=== PATIENT | female | born 1985 | race Hispanic/Latino ===

== ENCOUNTER 2022-05-21 01:43 | Emergency (ER) | payer SELFPAY ==
[2022-05-21 02:41] LABS: Urine Blood 2+ (Negative); Urine Glucose Negative (Negative); Urine Protein Negative (Negative)
[2022-05-21 05:03] LABS: Absolute Lymphocytes (CBC) 1.5 K/uL (0.7-4.9); Hematocrit 40.6 % (36.0-45.0); Lymphocytes % 21.4 % (15.3-44.8); MPV 7.9 fL (7.6-11.3); RBC Red Blood Cell Count 4.29 M/uL (3.86-4.86)
[2022-05-21 05:22] LABS: Potassium 3.6 mmol/L (3.5-5.1)
--- NOTE | 2022-05-21 08:07 | EDPHYS ---
Physician Documentation [facility] Name: Kira Nichole Age: 37 yrs Sex: Female : 1985 Arrival Date: 05/21/2022 Time: 01:46 Bed 3 Private MD: ED Physician Jamaal Jenkins HPI: 05/21 04:10 This 37 yrs old Female presents to ER via Ambulatory with complaints of mh7 Vaginal Bleeding. 04:10 The patient presents with vaginal bleeding that is light. Onset: The symptoms/episode mh7 began/occurred today, at 01:00. Modifying factors: The symptoms are alleviated by nothing, the symptoms are aggravated by nothing. 04:10 Associated signs and symptoms: Pertinent positives: back pain, Pertinent negatives: mh7 constipation, cramping, diarrhea, dyspareunia, dysuria, fever, hematuria, nausea, urinary frequency, vaginal discharge, vomiting. 04:10 Severity of symptoms: At their worst the symptoms were mild, earlier today, in the 7 emergency department the symptoms have improved, markedly. The patient is sexually active. 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 - Social history:: Smoking status: Patient denies any tobacco usage or history of. ROS: 04:10 Constitutional: Negative for fever, chills, and weight loss, Eyes: Negative for injury, mh7 pain, redness, and discharge, ENT: Negative for injury, pain, and discharge, Neck: Negative for injury, pain, and swelling, Cardiovascular: Negative for chest pain, palpitations, and edema, Respiratory: Negative for shortness of breath, cough, wheezing, and pleuritic chest pain, Abdomen/GI: Negative for abdominal pain, nausea, vomiting, diarrhea, and constipation, MS/Extremity: Negative for injury and deformity, Skin: Negative for injury, rash, and discoloration, Neuro: Negative for headache, weakness, numbness, tingling, and seizure, Psych: Negative for depression, anxiety, suicide ideation, homicidal ideation, and hallucinations, Allergy/Immunology: Negative for hives, rash, and allergies, Endocrine: Negative for neck swelling, polydipsia, polyuria, polyphagia, and marked weight changes, Hematologic/Lymphatic: Negative for swollen nodes, abnormal bleeding, and unusual bruising. Exam: 04:10 Constitutional: This is a well developed, well nourished patient who is awake, alert, mh7 and in no acute distress. Head/Face: Normocephalic, atraumatic. Eyes: Pupils equal round and reactive to light, extra-ocular motions intact. Lids and lashes normal. Conjunctiva and sclera are non-icteric and not injected. Cornea within normal limits. Periorbital areas with no swelling, redness, or edema. Neck: Trachea midline, no thyromegaly or masses palpated, and no cervical lymphadenopathy. Supple, full range of motion without nuchal rigidity, or vertebral point tenderness. No Meningismus. Chest/axilla: Normal chest wall appearance and motion. Nontender with no deformity. No lesions are appreciated. Cardiovascular: Regular rate and rhythm with a normal S1 and S2. No gallops, murmurs, or rubs. Normal PMI, no JVD. No pulse deficits. Respiratory: Lungs have equal breath sounds bilaterally, clear to auscultation and percussion. No rales, rhonchi or wheezes noted. No increased work of breathing, no retractions or nasal flaring. Abdomen/GI: Soft, non-tender, with normal bowel sounds. No distension or tympany. No guarding or rebound. No evidence of tenderness throughout. Back: No spinal tenderness. No costovertebral tenderness. Full range of motion. Skin: Warm, dry with normal turgor. Normal color with no rashes, no lesions, and no evidence of cellulitis. MS/ Extremity: Pulses equal, no cyanosis. Neurovascular intact. Full, normal range of motion. Neuro: Awake and alert, GCS 15, oriented to person, place, time, and situation. Cranial nerves II-XII grossly intact. Motor strength 5/5 in all extremities. Sensory grossly intact. Cerebellar exam normal. Normal gait. Psych: Awake, alert, with orientation to person, place and time. Behavior, mood, and affect are within normal limits. 04:10 : CVA tenderness, is absent, Pelvic Exam: The exam is refused by the patient/guardian. The risks and consequences are understood by the patient. Vital Signs: 02:26 BP 137 / 87; Pulse 95; Resp 17; Temp 98.4; Pulse Ox 98% ; Weight 56.25 kg; Height 4 ft. vc1 11 in. (149.86 cm); Pain 6/10; 04:49 BP 133 / 94; Pulse 97; Resp 18 S; Pulse Ox 99% on R/A; as6 05:58 BP 113 / 78; Pulse 96; Resp 18 S; Pulse Ox 100% on R/A; as6 02:26 Body Mass Index 25.04 (56.25 kg, 149.86 cm) vc1 MDM: 07:10 Differential diagnosis: ectopic , menometrorrhagia, menorrhea, threatened Ab, mh7 inevitable Ab, complete Ab, retained Ab, septic Ab, missed Ab, urinary tract infection. Data reviewed: vital signs, nurses notes, lab test result(s), Beta HCG: CBC, electrolytes, urinalysis, UPT: positive radiologic studies, ultrasound. Data interpreted: Pulse oximetry: on room air is 100 %. Interpretation: normal. Counseling: I had a detailed discussion with the patient and/or guardian regarding: the historical points, exam findings, and any diagnostic results supporting the discharge/admit diagnosis, lab results, radiology results, the need for outpatient follow up, an OB/Gyne specialist. 07:35 Counseling: I had a detailed discussion with the patient and/or guardian regarding: to mh7 return to the emergency department if symptoms worsen or persist or if there are any questions or concerns that arise at home. Response to treatment: the patient's symptoms have markedly improved after treatment. ED course: Feels better, well appearing, NAD, VSS, no focal neurological deficits. Discussed test results and findings with patient. Discussed possible options including D\T\C procedure and expectant management with passing products of conception. She prefers to go home with expectant passage of products. 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 07:50 Physician consultation: Nash Fam MD was contacted at 07:30, regarding patient's mh7 condition, and will see patient in office. 08:06 Patient medically screened. 7 05/21 02:41 Order name: Urine Dipstick-Ancillary; Complete Time: 04:11 EDWI 05/21 02:41 Order name: Urine --Ancillary (enter results); Complete Time: 04:11 mw2 05/21 04:09 Order name: Abo/rh Typing; Complete Time: 06:24 as05/21 04:09 Order name: Basic Metabolic Panel; Complete Time: 05:44 05/21 04:09 Order name: CBC with Diff; Complete Time: 05:44 05/21 04:09 Order name: Quantitative Hcg; Complete Time: 05:44 05/21 02:41 Order name: Urine Dipstick-Ancillary (obtain specimen); Complete Time: 02:41 mw05/21 02:41 Order name: Urine Test (obtain specimen); Complete Time: 02:41 mw05/21 04:09 Order name: IV Saline Lock; Complete Time: 04:48 05/21 04:09 Order name: Labs collected and sent; Complete Time: 04:48 05/21 04:09 Order name: NPO; Complete Time: 04:24 05/21 04:15 Order name: US Transvaginal Ob 7 Administered Medications: No medications were administered Disposition Summary: 05/21/22 08:06 Discharge Ordered Location: Home mh7 Problem: new mh7 Symptoms: have improved mh7 Condition: Stable mh7 Diagnosis - Missed 7 Followup: 7 - With: Private Physician - When: 1 - 2 days - Reason: Worsening of condition, Recheck today's complaints, Continuance of care, Re-evaluation by your physician Followup: 7 - With: Nash Fam MD - When: 1 - 2 days - Reason: Worsening of condition, Recheck today's complaints Discharge Instructions: - Discharge Summary Sheet 7 - Demise 7 - Miscarriage, [id number] [facility] Forms: - Medication Reconciliation Form 7 - Thank You Letter 7 - Antibiotic Education 7 - Prescription Opioid Use [facility] Prescriptions: - Tylenol-Codeine #3 300 mg-30 mg Oral - take 2 tablet by ORAL route every 6 hours As needed; 15 tablet; Refills: 0, mh7 Product Selection Permitted Signatures: Dispatcher [employer] Kenna Fabian mw2 Jamaal Jenkins MD MD mh7 Dipak Schaefer RN RN as6 Carolynn Painter RN RN vc1
--- NOTE | 2022-05-21 08:07 | ER ---
Nurse's Notes [facility] Name: Kira Nichole Age: 37 yrs Sex: Female : 1985 Arrival Date: 05/21/2022 Time: 01:46 Bed 3 Private MD: Diagnosis: Missed Presentation: 05/21 02:26 Chief complaint: Patient states: "I did a test at home and now I am bleeding vc1 and my back is hurting.". Coronavirus screen: Vaccine status: Patient reports receiving the 2nd dose of the covid vaccine. Moderna At this time, the client does not indicate any symptoms associated with coronavirus-19. Ebola Screen: No symptoms or risks identified at this time. Initial Sepsis Screen: Does the patient meet any 2 criteria? No. Patient's initial sepsis screen is negative. Does the patient have a suspected source of infection? No. Patient's initial sepsis screen is negative. Risk Assessment: Do you want to hurt yourself or someone else? Patient reports no desire to harm self or others. Onset of symptoms was May 21, 2022. 02:26 Method Of Arrival: Ambulatory vc1 02:26 Acuity: CARLY 3 vc1 Triage Assessment: 02:30 General: Appears in no apparent distress. comfortable, Behavior is cooperative, vc1 anxious. Pain: Complains of pain in back Pain does not radiate. Pain currently is 6 out of 10 on a pain scale. Neuro: Level of Consciousness is awake, alert, obeys commands, Oriented to person, place, time, situation, Appropriate for age. Cardiovascular: Capillary refill < 3 seconds Patient's skin is warm and dry. Respiratory: Airway is patent Respiratory effort is even, unlabored, Respiratory pattern is regular, agonal. GI: No deficits noted. : Reports vaginal bleeding that is bright red. 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 - Social history:: Smoking status: Patient denies any tobacco usage or history of. Screenin:32 Abuse screen: Denies threats or abuse. Nutritional screening: No deficits noted. vc1 Tuberculosis screening: No symptoms or risk factors identified. Fall Risk None identified. Assessment: 04:48 General: Appears in no apparent distress. Behavior is calm, cooperative. Pain: as6 Complains of pain in back. Neuro: Level of Consciousness is awake, alert. Cardiovascular: Patient's skin is warm and dry. Respiratory: Respiratory effort is even, unlabored. : Reports cramping, lower back vaginal bleeding that is. 05:58 Reassessment: Patient appears in no apparent distress at this time. as6 07:30 Reassessment: Patient appears in no apparent distress at this time. Patient and/or ph family updated on plan of care and expected duration. Pain level reassessed. Patient is alert, oriented x 3, equal unlabored respirations, skin warm/dry/pink. Dr Jenkins at bedside w/ culture-link educational interpreter to speak w/ pt about US results, instructed pt to follow up w/ OB. Vital Signs: 02:26 BP 137 / 87; Pulse 95; Resp 17; Temp 98.4; Pulse Ox 98% ; Weight 56.25 kg; Height 4 ft. vc1 11 in. (149.86 cm); Pain 6/10; 04:49 BP 133 / 94; Pulse 97; Resp 18 S; Pulse Ox 99% on R/A; as6 05:58 BP 113 / 78; Pulse 96; Resp 18 S; Pulse Ox 100% on R/A; as6 02:26 Body Mass Index 25.04 (56.25 kg, 149.86 cm) vc1 ED Course: 01:46 Patient arrived in ED. bp1 02:30 Triage completed. vc1 02:30 Arm band placed on right wrist. vc1 02:32 Patient has correct armband on for positive identification. vc1 04:08 Dipak Schaefer, JOSE C is Primary Nurse. as6 04:10 Jamaal Jenkins MD is Attending Physician. 7 04:48 Inserted saline lock: 20 gauge in right antecubital area, using aseptic technique. as6 Blood collected. 05:27 US Transvaginal Ob In Process Unspecified. EDMS 08:05 Nash Fam MD is Referral Physician. [facility] 08:21 No provider procedures requiring assistance completed. IV discontinued, intact, ph bleeding controlled, No redness/swelling at site. Pressure dressing applied. Administered Medications: No medications were administered Medication: 08:21 VIS not applicable for this client. ph Outcome: 08:06 Discharge ordered by . [facility] 08:21 Discharged to home with significant other. ph 08:21 Condition: good 08:21 Discharge instructions given to patient, Instructed on discharge instructions, follow up and referral plans. medication usage, Demonstrated understanding of instructions, follow-up care, medications, Prescriptions given X 1. 08:26 Patient left the ED. ph Signatures: Dispatcher [employer] EDSD Gricelda Schulte, RN RN Rhona Dao Maurice, MD MD 7 Dipak Schaefer RN RN as6 Carolynn Painter RN RN vc1
[2022-05-21 08:41] VITALS: TEMP 98.4
[2022-05-21 08:47] VITALS: BP 113/78; O2SAT 100
--- NOTE | 2022-05-21 14:22 | RAD REPORT ---
EXAM DESCRIPTION: US - Transvaginal OB - 05/21/2022 7:36 am CLINICAL HISTORY: 37 years Female with heavy vaginal bleeding, LMP: 04/01/2022, EGA: 7 weeks, 1 day, E TECHNIQUE: Sonographic imaging of the pelvis was performed endovaginally on 05/21/2022 at 4: 57 AM COMPARISON: None FINDINGS: The uterus is normal in size and configuration and measures: 7.4 x 5.0 x 6.0 cm. There i s a grossly normal-appearing intrauterine gestational sac which measures approximately 2.6 cm in diam eter corresponding to a 7 week, 4 day . There is an approximately 0.3 cm sac present. There is an approximately 1.0 cm pole corresponding to a 7 week 1 day . However, no he art tones could be detected consistent with intrauterine demise. The ovaries are not clearly de lineated on this examination due to adjacent bowel gas. No adnexal mass lesions are seen. There is no evidence of free fluid in the pelvis. IMPRESSION: 1. Grossly normal appearing intrauterine gestational sac which contains a yolk sac and f etal pole corresponding to an estimated ultrasound age of 7 weeks 4 days. However, no heart ton es could be identified consistent with intrauterine demise. 2. Nonvisualization of the ovaries at this time due to bowel gas. 3. No definite adnexal mass lesions or free fluid are seen. Electronically signed by: Radha George DO 05/21/2022 6:21 AM CDT Due to temporary technical issues with the PACS/Fluency reporting system, reports are being signed by the in house radiologist without review as a courtesy to ensure prompt reporting. The interpreting r adiologist is fully responsible for the content of the report.
== END 2022-05-21 08:26 | disposition home or self-care (01) ==
LOC: ER 01:43
DX: O02.1 Missed abortion (principal)
CPT/HCPCS: 36415; 76817; 80048; 81003; 81025; 84702; 85025; 86900; 86901; 99284